=== PATIENT | male | born 1990 | race Two or more races ===

== ENCOUNTER 2024-03-07 23:53 | Emergency (ER) | payer MEDICAID, OTHER ==
[~2024-03-07] VITALS: Ht 172.7 cm; Wt 91.0 kg
[2024-03-08] MEDS ORDERED: IBUP-1455 PO (03:20)
[2024-03-08] MEDS ORDERED: HYDR-4798 PO (03:20)
[2024-03-08] MEDS: HYDROcodone-ACET 10/325MG TAB PO ONE (04:02)
[2024-03-08 04:19] VITALS: BP 125/74; PULSE 102; RESP 18; TEMP 97.9
[2024-03-08 04:37] VITALS: O2SAT 98
== END 2024-03-08 04:48 | disposition home or self-care (01) ==
LOC: ER 23:53
DX: S62.101A Fracture of unspecified carpal bone, right wrist, initial encounter for closed fracture (principal); S80.01XA Contusion of right knee, initial encounter; W01.0XXA Fall on same level from slipping, tripping and stumbling without subsequent striking against object, initial encounter; Y93.I9 Activity, other involving external motion; Y92.89 Other specified places as the place of occurrence of the external cause; Y99.8 Other external cause status
CPT/HCPCS: 29125; 29505; 73110